=== PATIENT | female | born 1980 | race African-American/Black ===

== ENCOUNTER 2020-09-20 13:26 | Emergency (ER) | payer OTHER ==
[2020-09-20 13:37] VITALS: BP 97/62; PULSE 60; TEMP 97.6; BMI 24.2
[2020-09-20] MEDS ORDERED: KETOROLAC TROMETHAMINE 30 MG/1 ML VIAL IM ONE (14:10)
[2020-09-20] MEDS ORDERED: KETOROLAC TROMETHAMINE 30 MG/1 ML VIAL ONE (14:19)
== END 2020-09-20 15:08 | disposition home or self-care (01) ==
LOC: JER 13:26
PROC: 3E0233Z Introduction of Anti-inflammatory into Muscle, Percutaneous Approach (ICD-10-PCS; principal; 2020-09-20)
DX: M25.562 Pain in left knee (principal)
CPT/HCPCS: 71046-TC-FY; 73562-TC-LT-FY; 99284-25